=== PATIENT | female | born 1985 ===

== ENCOUNTER 2025-04-05 14:05 | Outpatient (CLI) | payer OTHER | END 2025-04-05 14:06 | disposition home or self-care (01) | LOC: PRENATAL 14:05 | PROVIDERS: ATTEND Obstetrics & Gynecology Maternal & Fetal Medicine | DX: Z14.8 Genetic carrier of other disease (principal); Z3A.21 21 weeks gestation of pregnancy ==

== ENCOUNTER → 2025-06-14 12:02 | Outpatient (CLI) | payer OTHER | END | disposition home or self-care (01) | LOC: PRENATAL 12:02 | PROVIDERS: ATTEND Obstetrics & Gynecology Maternal & Fetal Medicine | DX: O26.849 Uterine size-date discrepancy, unspecified trimester (principal); O36.8199 Decreased fetal movements, unspecified trimester, other fetus; Z14.8 Genetic carrier of other disease; Z3A.33 33 weeks gestation of pregnancy ==

== ENCOUNTER 2025-07-20 08:53 | Outpatient (CLI) | payer OTHER | END 2025-07-20 08:55 | disposition home or self-care (01) | LOC: PRENATAL 08:53 | PROVIDERS: ATTEND Obstetrics & Gynecology Maternal & Fetal Medicine | DX: O26.849 Uterine size-date discrepancy, unspecified trimester (principal); Z14.8 Genetic carrier of other disease; O36.8130 Decreased fetal movements, third trimester, not applicable or unspecified; O09.529 Supervision of elderly multigravida, unspecified trimester; O36.60X0 Maternal care for excessive fetal growth, unspecified trimester, not applicable or unspecified; Z3A.38 38 weeks gestation of pregnancy ==